=== PATIENT | female | born 1975 | race African-American/Black ===

== ENCOUNTER 2020-12-31 14:56 | Emergency (ER) | payer MEDICAID, MEDICARE ==
[~2020-12-31] VITALS: Ht 170.2 cm; Wt 95.0 kg
[~2020-12-31 14:56] MED LIST: ATENOLOL; HYDROCHLOROTHIAZIDE; LISINOPRIL; NIFEDIPINE; lorazepam
[2020-12-31 15:05] VITALS: BP 166/94
[2020-12-31] MEDS ORDERED: LORAZEPAM 0.5MG TABLET PO ONE (16:00)
== END 2020-12-31 18:14 | disposition home or self-care (01) ==
LOC: ER 14:56
DX: F41.9 Anxiety disorder, unspecified (principal); R00.2 Palpitations; I10 Essential (primary) hypertension; Z79.899 Other long term (current) drug therapy
CPT/HCPCS: 93005; 99283